=== PATIENT | female | born 1990 | race Two or more races ===

== ENCOUNTER 2024-02-15 14:07 | Emergency (ER) | payer OTHER, SELFPAY ==
--- NOTE | ~2024-02-15 | XR_ITS ---
EXAMINATION: PORTABLE CHEST 1 VIEW CLINICAL INFORMATION: chest pain. COMPARISON: No recent pertinent prior studies are available for comparison. TECHNIQUE: Portable frontal view of the chest was obtained. FINDINGS: The lungs are well expanded. No focal infiltrate, effusion, edema, or pneumothorax. Cardiac and mediastinal silhouettes are within normal limits for technique. No acute bony abnormality seen. XR/XR chest 1V IMPRESSION: No evidence of acute disease.
--- NOTE | 2024-02-15 14:11 | ECG_ITS ---
Test Reason : CHEST PAIN Blood Pressure : / mmHG Vent. Rate : 082 BPM Atrial Rate : 082 BPM P-R Int : 158 ms QRS Dur : 114 ms QT Int : 378 ms P-R-T Axes : 053 064 025 degrees QTc Int : 441 ms Normal sinus rhythm Right bundle branch block Abnormal ECG No previous ECGs available Referred By: Generic ED Physician Electronically Signed By:Maurilio Montero
[2024-02-15 14:35] VITALS: BP 104/63; PULSE 71; RESP 18; TEMP 36.7; O2SAT 99; BMI 25.2
--- NOTE | 2024-02-15 14:40 | ED_ITS ---
HPI - Chest Pain General Chief Complaint: Chest Pain Stated Complaint: abnormal ekg sent from urgent care Time Seen by Provider: 02/15/24 16:18 Source: patient and family (Mother) Mode of arrival: ambulatory Limitations: no limitations History of Present Illness HPI narrative: 33-year-old female came in for evaluation of chest pain for 4 days, pain has been constant for the past 4 days constantly but waxes and wanes, no difficulty breathing, no lower extremity swelling tenderness, no recent travel no prolonged immobilization. Pain is localized to the mid chest with no radiation, no shortness a breath association, no coughing, no fever, no chills. Patient found to be in RBBB on the EKG done at urgent care in the patient was sent for further evaluation. Related Data Allergies Allergy/AdvReac Type Severity Reaction Status Date / Time No Known Allergies Allergy Verified 02/15/24 14:40 Review of Systems 2 Review of Systems: All other systems are reviewed and are negative Constitutional: Reports as per HPI and Reports no additional constitutional complaints Eyes: Reports as per HPI and Reports no additional eye complaints Reports system reviewed and no additional complaints, except as documented Cardiovascular: Reports as per HPI and Reports no additional cardiovascular complaints Respiratory: Reports as per HPI and Reports no additional respiratory complaints Gastrointestinal: Reports as per HPI and Reports no additional gastrointestinal complaints Genitourinary: Reports no additional female genitourinary complaints Musculoskeletal: Reports no additional musculoskeletal complaints Skin/Breast: Reports system reviewed and no additional complaints, except as docu Psychiatric: Reports no additional psychiatric complaints Endocrine: Reports no additional endocrine complaints Hematologic/Lymphatic: Reports no additional hematologic/lymphatic complaints Allergic/Immunologic: Reports no additional allergic/immunologic complaints Reports system reviewed and no additional complaints, except as documented and Reports Abnormal speech present [facility] Social History Social History Advance Directives: No Advance Directives Information Provided: No Do you have a plan to hurt others: No Plan Physical Exam 2 Vital Signs: Vital Signs: Last Vital Signs Temp 97.1 F 02/15/24 18:39 Pulse 64 02/15/24 18:39 Resp 18 02/15/24 18:39 BP 106/74 02/15/24 18:39 Pulse Ox 99 02/15/24 18:39 O2 Del Method Room Air 02/15/24 18:39 BMI result Body Mass Index 25.2 Vital signs have been reviewed and appear to be correct. Blood pressure elevated. Heart rate normal. Respiratory rate normal. Temperature normal. Oxygen saturation normal. Appearance: Alert. Oriented X3. No acute distress. Head: Normal external exam. Normocephalic. Atraumatic. No Dewitt signs noted. No raccoon eyes noted Eyes: PERRLA. EOMI. Conjunctiva and sclera normal. Eyelids normal. ENT: TM's Normal. Pharynx normal. Uvula midline. Moist mucous membranes. No trismus noted. No drooling noted. No muffled voice noted. Neck: Normal inspection. Neck supple. FROM. No adenopathy. Thyroid Normal. No meningeal signs. No neck mass noted. CVS: Normal heart rate and rhythm. Heart sound normal. No murmurs noted. Pulses normal throughout. Respiratory: No respiratory distress. Painless inspiration. Breath sounds normal. No wheezes/rales/rhonchi noted. Chest nontender. No accessory muscle usage noted or decreased air movement noted. Abdomen: Soft and nontender. Bowel sounds normal in all 4 quadrants. No distention noted. No organomegaly noted. No visible injury noted. Back: No CVA tenderness. Full range of motion noted. Skin: Skin warm and dry. Normal skin color. Normal skin turgor. No rashes/lesions/lacerations noted. Extremities: No lower extremity edema. Extremities exhibit normal range of motion. Extremities nontender. Neuro: Oriented X 3. Cranial nerve exam: II-XII are grossly intact No motor deficit. No sensory deficit. Reflexes normal. Course Course Course Narrative: This is a rapid medical exam completed by Victorina SALMERONN: Additional HPI, ROS, PE not included below will be deferred to primary provider. Chest pain since 02/11/24. Went to urgent care earlier today with concerns for an abnormal EKG Reevaluation(s) Reevaluation #1: Noncardiac chest pain. EKG is showing RBBB no old EKG to compare, unremarkable troponin and D-dimer to suggest ACS or pulmonary embolism. As discussed with the patient to follow-up with Dr. Juliocesar russell as an outpatient for the abnormal EKG. Time: 19:00 Medical Decision Making Differential Diagnosis Differential Diagnoses: The differential diagnosis associated with the presentation includes (ACS, pulmonary embolism, pneumonia, pneumothorax, pleural effusion, rib fracture, myofascial chest pain, electrolyte derangement, anemia.) Admission/Observation Consideration of admission/observation: Escalation of care including admission/observation considered Lab Data MDM Lab Attestation statement: I reviewed the patient's lab results. 02/15/24 15:44 02/15/24 15:44 Labs: Lab Results 02/15/24 02/15/24 Range/Units 15:44 16:43 WBC 4.3 L (4.8-10.8) X10*3/uL RBC 4.75 (4.20-5.50) X10*6/uL Hgb 14.1 (12.0-16.0) g/dl Hct 40.9 (37.0-47.0) % MCV 86.1 (80.0-98.0) fL MCH 29.7 (27.0-33.0) pg MCHC 34.5 (31.0-35.0) g/dl RDW 12.4 (11.0-16.0) % Plt Count 252 (160-400) X10*3/uL MPV 8.6 L (9.4-12.3) fL Immature Gran % (Auto) 0.0 (0.0-0.4) % Neut % (Auto) 25.6 L (45-73) % Lymph % (Auto) 66.3 H (20-40) % [place] % (Auto) 6.3 (2-11) % Eos % (Auto) 1.6 (0-4) % Baso % (Auto) 0.2 (0-2) % Lymph # (Auto) 2.9 (1.2-4.9) X10*3/uL [place] # (Auto) 0.3 (0.1-1.2) X10*3/uL Eos # (Auto) 0.1 (0.0-0.4) X10*3/uL Baso # (Auto) 0.0 (0.0-0.2) X10*3/uL Abs Immat Gran (auto) 0.00 (0.00-0.03) X10*3/uL Absolute Neuts (auto) 1.1 L (2.0-8.3) x10*3/uL Absolute Nucleated RBC 0.000 (0.0-0.012) X10*3/uL Nucleated RBC % (auto) 0.0 (0.0-0.2) /100WBC Smear Tech's Comments VERIFIED D-Dimer High Sensitivty < 150 NG/ML Sodium 137 (135-145) mmol/L Potassium 4.0 (3.3-5.1) mmol/L Chloride 104 (96-108) mmol/L Carbon Dioxide 25 (22-29) mmol/L Anion Gap 12 (12-20) BUN 9 (9-16) mg/dL Creatinine 0.69 (0.5-1.4) mg/dL Estim Creat Clear Calc 106.7 Estimated GFR > 60 Random Glucose 87 (60-115) mg/dL Calcium 9.5 (8.4-10.2) mg/dL Magnesium 2.2 (1.6-2.6) mg/dL Total Bilirubin 0.5 (0.0-1.0) mg/dL AST 18 (5-31) U/L ALT 12 (0-31) U/L Alkaline Phosphatase 42 (39-117) U/L Troponin I High Sens < 2.7 < 2.7 (<3.5-17.0) ng/L Total Protein 7.4 (6.5-8.0) g/dL Albumin 4.3 (3.5-5.0) g/dL Independent Interpretation I performed an independent interpretation of an: EKG (Normal sinus rhythm at 82 beats per minutes, RBBB, otherwise unremarkable intervals.) and Plain X-Ray (Chest: No evidence of acute disease.) Radiology Impression Discussion of test interpretation with radiology: I have reviewed the radiologist's reading. Discharge Plan Discharge Clinical Impression: Chest pain, Right bundle branch block (RBBB) Patient Disposition: Home, Self-Care Instructions: Chest Pain (ED) Referrals: Alexandria Higuera MD [Primary Care Provider] - Maurilio Montero MD [Physician] - Print Language: Upper Sorbian
[2024-02-15 15:52] LABS: Basophils Percent Auto 0.2 % (0-2); Eosinophils Absolute Auto 0.1 X10*3/uL (0.0-0.4); Eosinophils Percent Auto 1.6 % (0-4); Hematocrit 40.9 % (37.0-47.0); Hemoglobin 14.1 g/dl (12.0-16.0); Lymphocytes Absolute Auto 2.9 X10*3/uL (1.2-4.9); Lymphocytes Percent Auto 66.3 % (20-40); MANUAL DIFF FLAG SCAN; Mean Corpuscular HGB Conc 34.5 g/dl (31.0-35.0); Mean Corpuscular Hemoglobin 29.7 pg (27.0-33.0); Mean Corpuscular Volume 86.1 fL (80.0-98.0); Mean Platelet Volume 8.6 fL (9.4-12.3); Monocytes Absolute Auto 0.3 X10*3/uL (0.1-1.2); Monocytes Percent Auto 6.3 % (2-11); Neutrophils Absolute Auto 1.1 x10*3/uL (2.0-8.3); Neutrophils Percent Auto 25.6 % (45-73); Platelet Count 252 X10*3/uL (160-400); Red Blood Count 4.75 X10*6/uL (4.20-5.50); Red Cell Distribution Width 12.4 % (11.0-16.0); SCAN SMEAR FLAG 1; White Blood Count 4.3 X10*3/uL (4.8-10.8)
[2024-02-15 16:20] LABS: Alanine Aminotransferase 12 U/L (0-31); Albumin Level 4.3 g/dL (3.5-5.0); Alkaline Phosphatase 42 U/L (39-117); Anion Gap 12 (12-20); Aspartate Amino Transferase 18 U/L (5-31); Bilirubin Total 0.5 mg/dL (0.0-1.0); Blood Urea Nitrogen 9 mg/dL (9-16); Calcium 9.5 mg/dL (8.4-10.2); Carbon Dioxide 25 mmol/L (22-29); Chloride 104 mmol/L (96-108); Creatinine Clr Calc Pharmacy 106.7; Estimated Glomerular Filt Rate > 60; Glucose Random 87 mg/dL (60-115); Magnesium 2.2 mg/dL (1.6-2.6); Sodium 137 mmol/L (135-145); Total Protein 7.4 g/dL (6.5-8.0)
[2024-02-15 16:25] LABS: SLIDE REVIEW VERIFIED
[2024-02-15 16:28] LABS: Troponin-I High Sensitivity < 2.7 ng/L (<3.5-17.0)
[2024-02-15 18:02] LABS: D Dimer High Sensitivity < 150 NG/ML
[2024-02-15 18:12] LABS: Troponin-I High Sensitivity < 2.7 ng/L (<3.5-17.0)
[2024-02-15 18:39] VITALS: BP 106/74; PULSE 64; RESP 18; TEMP 36.2; O2SAT 99
[2024-02-15 19:12] VITALS: BP 106/74; PULSE 64; RESP 18; TEMP 36.2; O2SAT 99
== END 2024-02-15 19:13 | disposition home or self-care (01) ==
PROVIDERS: Nurse Practitioner Family; Emergency Provider Emergency Medicine; PCP Internal Medicine
DX: R07.9 Chest pain, unspecified (principal); I45.10 Unspecified right bundle-branch block
CPT/HCPCS: 36415; 71045; 80053; 83735; 84484; 85025; 85379; 93005; 99283; 99284

== ENCOUNTER → 2024-02-15 14:11 | Outpatient (BNV) | payer OTHER, SELFPAY | PROVIDERS: Emergency Provider Emergency Medicine; PCP Internal Medicine; Visit Provider Internal Medicine Cardiovascular Disease | DX: R07.9 Chest pain, unspecified (principal) | CPT/HCPCS: 93010 ==

== ENCOUNTER 2024-03-10 08:11 | Outpatient (AMB) | payer OTHER, SELFPAY ==
[2024-03-10 08:16] VITALS: BP 100/62; PULSE 90; BMI 25.7
--- NOTE | 2024-03-10 08:16 | MHC.OFFVIS ---
Vital Signs 03/10/24 08:16 Height 5 ft 3 in Weight 145 lb 1.027 oz BMI 25.7 BP 100/62 Blood Pressure Location Rt brachial Position Sitting Pulse 90 Pulse Source Pulse Oximeter Intake Visit Reasons: abnormal ekg /RBBB Adjunct Faculty Required: No Allergies No Known Allergies Allergy (Verified 03/10/24 08:18) Medication List - Last Reconciled 03/10/24 by Beth Giles, JUAN PABLO-C loratadine 10 mg PO DAILY PNV,calcium 34-eyel-rpjac acid 27 mg iron- 1 mg (M-Peterson Plus) 1 tab PO DAILY HPI HPI abnormal ekg /RBBB: Details: Jordana is a 33-year-old female with past medical history of asthma, social smoking who recently presented to [facility] with report of left-sided chest discomfort. Her symptom had been ongoing for the last 4 days. She ruled out for ACS. Her EKG did show right bundle branch block. She was referred to Cardiology in follow-up. Today she presents for cardiology consultation. She states she has a history of heart murmur, no other cardiac history. She continues to have a mild discomfort in her left upper chest which has been persistent for the last 2 weeks. Initially she was getting sharp pains in that region however that has improved. She does work out routinely doing light lifting and cardio. Does not recall having any specific injury. She has occasional shortness of breath which she relates to her asthma. She will feel fluttering in her chest at times lasting seconds. No dizziness, presyncope, syncope, falls. No PND, orthopnea or edema. 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 She smokes cigarettes socially when she is with her family. No alcohol use. No known family history of heart disease. COUNT INCLUDES THE [facility] Medical History (Updated 03/10/24 @ 08:55 by Beth Giles, JUAN PABLO-C) Asthma Surgical History (Updated 03/10/24 @ 08:52 by Beth Giles NP-C) History of appendectomy Social History (Updated 03/10/24 @ 08:51 by Beth Giles NP-C) Alcohol intake: never Patient Tobacco Use Status: Current someday Tobacco user Review of Systems Const All systems reviewed & are unremarkable except as noted in HPI and below ENT Denies dizziness Card Reports chest pain, Reports chest pain at rest, Denies chest pain with activity, Denies rapid heart rate, Denies pedal edema, Denies edema, Denies leg edema, Denies lightheadedness, Denies palpitations, Denies dyspnea, Denies dyspnea on exertion and Denies orthopnea Resp Denies cough, Denies dyspnea and Denies dyspnea on exertion GI Denies hematochezia and Denies change in stool character Musc Denies abnormal gait, Denies limited range of motion, Denies muscle cramps, Denies muscle weakness, Denies numbness, Denies radiating pain into limb, Denies stiffness and Denies tingling Neuro Denies abnormal gait, Denies dizziness, Denies numbness and Denies tingling Endo Denies palpitations Physical Exam Vital Signs: Last Vital Signs Pulse 90 03/10/24 08:16 BP 100/62 03/10/24 08:16 BMI result Body Mass Index 25.7 Const General: cooperative, healthy appearing, comfortable and no acute distress Orientation/consciousness: patient oriented x3 Neck Neck: Yes normal visual inspection and Yes no JVD Resp Effort & Inspection: normal respiratory effort Auscultation: clear to auscultation bilaterally, no crackles, no rales, no rhonchi and no wheezes Cardio Jugular venous distension: no JVD Rate: regular rate Rhythm: regular rhythm Heart sounds: S1 normal heart sound present, S2 normal heart sound present, no murmurs and no rubs Neuro General: patient oriented x3 Extrem General: Yes normal to inspection, No no pedal edema and No calf tenderness Psych Appearance: grossly normal Mental Status: mental status grossly normal Speech and movement: Normal speech and movement present Assessment & Plan Assessment & Plan (1) Chest pain: Code(s): R07.9 - Chest pain, unspecified Category: Medical Plan: Forward of atypical sounding chest discomfort. She has had persistent mild symptoms for the last 2 weeks. Cardiac risk factor of social smoking. EKG recently done shows sinus rhythm with right bundle branch block. She is reporting intermittent palpitations which feel like a flutter in her chest. At this time will perform cardiac workup with stress echocardiogram to assess for ischemia, echocardiogram to assess for structural heart disease. She does report history of murmur however I do not hear any on exam today. Will order Holter monitor to assess for any arrhythmia, AFib as she does report fluttering in her chest. Emergency care if needed for symptoms. Offered reassurance that her chest discomfort sounds more like chest wall symptoms. Cardiology follow-up in 4-6 weeks, sooner if needed. (2) Right bundle branch block (RBBB): Code(s): I45.10 - Unspecified right bundle-branch block Category: Medical Plan: Finding on EKG, unknown chronicity. (3) Palpitation: Code(s): R00.2 - Palpitations Category: Medical Plan: As above Plan Time spent on chart review, documentation, interview and assessment Orders: Orders CA echo stress exercise Today I45.10 - Unspecified right bundle-branch block, R00.2 - Palpitations, R07.89 - Other chest pain CA echo transthoracic complete Today I45.10 - Unspecified right bundle-branch block, R00.2 - Palpitations, R07.9 - Chest pain, unspecified ECG 3 day holter monitor Today I45.10 - Unspecified right bundle-branch block, R00.2 - Palpitations Coding Level of Care Code New Pt Level 3 (20556) Diagnoses Chest pain R07.9 Right bundle branch block (RBBB) I45.10 Palpitation R00.2 Time Spent (min) 26
== END 2024-03-10 08:41 | disposition home or self-care (01) ==
PROVIDERS: PCP Internal Medicine; Visit Provider Nurse Practitioner Family
DX: R07.9 Chest pain, unspecified (principal); I45.10 Unspecified right bundle-branch block; R00.2 Palpitations
CPT/HCPCS: 99203

== ENCOUNTER → 2024-03-10 08:11 | Outpatient (BNVA) | payer OTHER, SELFPAY | PROVIDERS: PCP Internal Medicine; Visit Provider Nurse Practitioner Family | DX: R07.9 Chest pain, unspecified (principal); I45.10 Unspecified right bundle-branch block; R00.2 Palpitations | CPT/HCPCS: 99202 ==

== ENCOUNTER → 2024-03-26 13:55 | Outpatient (REF) | payer OTHER, SELFPAY ==
--- NOTE | 2024-03-26 14:02 | HM_ITS ---
* Total monitoring time 3 days. * Underlying rhythm is sinus with an average rate of 83/Min. About 25% of the time, rate > 100/Min. * Rare supraventricular ectopy. * One isolated ventricular ectopic beat. * No significant pauses or AV blocks. * Patient marker used once in association with sinus rhythm. * No diary events. MTDD
--- NOTE | 2024-03-26 14:02 | CA_ITS ---
Transthoracic Echocardiogram Patient (Last, First, Middle): Jordana Barron, Gender: Female Date of : 1990 Age: 33 Procedure Date: 03/26/2024 Procedure Type: Transthoracic Echocardiogram Location: OP Height: 160. cm Weight: 63.5 kg BSA: 1.66 m2 Heart Rate: 62 bpm BP: 110 / 60 mmHg Shoe Stock Associate: LEIGHTON Michaud MD: Beth Giles CARRIAGE DOGGER-Carlos Philosophy Faculty Member: Simeon Ardon MD Symptoms: I45.10 - Unspecified right bundle-branch block Study Quality: Fair ECG Rhythm: Sinus Conclusions: - Normal study Findings Left Ventricle Normal left ventricular size, thickness, and systolic function. The visually estimated ejection fraction is between 60-65%. Spectral Doppler is indicative of a normal filling pattern. Right Ventricle Normal right ventricular cavity size and systolic function. Atria Both atria are normal in size. There is no evidence of interatrial shunt. Aortic Valve Normal aortic valve structure and function. There is no aortic valve stenosis. There is no aortic valve regurgitation. Mitral Valve Normal mitral valve structure and function. There is no mitral valve regurgitation. There is no mitral valve stenosis. Pulmonic Valve The pulmonic valve is likely normal. Tricuspid Valve Normal tricuspid valve structure. There is trace tricuspid valve regurgitation. The right ventricular systolic pressure is normal. The right ventricular systolic pressure is 14 mmHg. Normal right atrial pressure. There is no evidence of pulmonary hypertension. Great Vessels There is no dilatation of the ascending aorta measuring 2.70 cm. Venous The inferior vena cava is normal in size and collapses greater than 50% with inspiration. Pericardium/Pleural There is no evidence of pericardial effusion. Prior Study Comparison No prior study available for comparison. Measurements 2D Linear Measurements IVSd: 0.80 0.6-0.9/0.6-1.0 cm LVIDd: 4.71 3.9-5.3/4.2-5.9 cm LVIDd Index: 2.84 2.4-3.2/2.2-3.1 cm/m2 LVIDs: 3.53 2.0-3.6 cm LVPWd: 0.82 0.7-1.1 cm LA Diam: 2.60 2.7-3.8/3.0-4.0 cm LAIDs Index: 1.57 1.5-2.3 cm/m2 LV Mass: 153.99 67-162/88-224 g LV Mass Index: 92.77 43-95/49-115 g/m2 LVOT Diam: 1.90 3.0+(-)1.3 cm 2D Systolic Function EF 4C: 62.60 >55% EF 2C: 63.50 >55% EF BiP: 63.20 >55% Mitral Valve MV Pk E: 0.66 MV PK A: 0.52 MV Decel Time: 177.00 E/A: 1.30 E'Lateral: 15.50 E'Medial: 11.10 E/E' Med: 6.00 E/E' Lat: 4.30 PHT: 52.00 MVA PHT: 4.23 Decel [place]: 3.75 Aortic Valve AoV Pk Tray: 1.00 AoV Mn Tray: 0.71 AoV VTI: 0.21 AoV Pk Grad: 4.00 Aov Mn Grad: 2.00 PATRICIA Cont.VTI: 2.67 LVOT LVOT Pk Tray: 0.94 LVOT Mn Tray: 0.65 LVOT VTI: 0.19 LVOT Pk Grad: 4.00 LVOT Mn Grad: 2.00 LVOT Diam: 1.90 LVOT Area: 2.84 Diastolic Function MV Pk E: 0.66 MV Pk A: 0.52 E/A: 1.30 E'Medial: 11.10 E/E' Med: 6.00 E' Laterial: 15.50 E/E' Lat: 4.30 Right Ventricle TAPSE (mm): 17.70 TVS' Tray: 10.80 Tricuspid Valve TR Pk Tray: 1.64 TR Pk Grad: 11.00 RA Press: 3.00 RVSP: 14.00 Great Vessels Aorta Sinus of Valsalva: 2.50 2.0-3.5 cm Ao Asc: 2.70 2.1-3.4 cm Pulmonary Valve PV Pk Tray: 0.80 Peak PV Grad: 3.00 Updated in Other Vendor System with Status of Final Simeon Ardon MD electronically signed on 03/26/2024 3:03:14 PM with status of Final
== END ==
LOC: HO.CARD 13:55
PROVIDERS: Visit Provider Nurse Practitioner Family
DX: R00.2 Palpitations (principal); R07.9 Chest pain, unspecified; I45.10 Unspecified right bundle-branch block
CPT/HCPCS: 93242; 93306

== ENCOUNTER → 2024-03-26 14:02 | Outpatient (BNV) | payer OTHER, SELFPAY | PROVIDERS: Visit Provider Internal Medicine Cardiovascular Disease | DX: I47.10 Supraventricular tachycardia, unspecified (principal) | CPT/HCPCS: 93244; 93306 ==

== ENCOUNTER → 2024-05-29 10:47 | Outpatient (REF) | payer OTHER, SELFPAY ==
--- NOTE | 2024-05-29 10:49 | CA_ITS ---
Acquisition Time: 2024-05-29 10:45:58 Total Exercise Time: 00:11:24 Test Indications: Chest Pain Medications: LORATADINE Protocol: RAQUEL Max HR: 190 BPM 101% of Pred: 188 BPM Max BP: 160/060 mmHG Max Work Load: 13.4 METS Exercise stress test exercise 11 min 24 sec of Raquel protocol achieving 96% MPHR, with mild SOB, no chest discomfort, with isolated PVCs and PACs, with normotensive response to exercise, without EKG changes. Echo images obtained by [employer] at rest and immediately post peak exercise. Definity contrast used. Test reviewed with Dr. Montero. Patient reported fluttering/palpitations during test. Rhythm was Sinus heart rate greater than 100 bpm. Would come in waves. No noted arrhythmias seen when she reported symptoms. Referred By: Beth Giles Overread By: Abril Pérez
== END ==
LOC: HO.CARD 10:47
PROVIDERS: Visit Provider Nurse Practitioner Family
DX: R07.89 Other chest pain (principal); I45.10 Unspecified right bundle-branch block; R00.2 Palpitations
CPT/HCPCS: 93350; Q9957

== ENCOUNTER → 2024-05-29 10:49 | Outpatient (BNV) | payer OTHER, SELFPAY | PROVIDERS: Visit Provider Nurse Practitioner | DX: R06.02 Shortness of breath (principal) | CPT/HCPCS: 93016; 93018; 93350; 93352 ==

== ENCOUNTER 2024-06-04 14:47 | Outpatient (AMB) | payer OTHER, SELFPAY ==
[2024-06-04 14:58] VITALS: BP 100/62; PULSE 94; BMI 25.8
--- NOTE | 2024-06-04 14:58 | A.OFFVIS_ITS ---
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 Her symptom had been ongoing for the last 4 days. She ruled out for ACS. Her EKG did show right bundle branch block. She was referred to Cardiology in follow-up. On last visit a Holter monitor, echocardiogram and stress echocardiogram were ordered and she now presents for follow-up. Today she that she still gets her left upper chest discomfort at times. Overall it has improved since last visit. She continues to work out in the gym doing light lifting and cardio. She has occasional shortness of breath which she relates to her asthma. She has not had any concerning heart palpitations. Her prior fluttering feeling she now feels is anxiety. No dizziness, presyncope, syncope, falls. No PND, orthopnea or edema. 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 She smokes cigarettes socially when she is with her family. [facility] Medical History Asthma Surgical History History of appendectomy Social History Alcohol intake: never Patient Tobacco Use Status: Current someday Tobacco user Review of Systems Const All systems reviewed & are unremarkable except as noted in HPI and below ENT Denies dizziness Card Denies chest pain, Denies chest pain at rest, Denies chest pain with activity, Denies rapid heart rate, Denies pedal edema, Denies edema, Denies leg edema, Denies lightheadedness, Denies palpitations, Reports dyspnea, Denies dyspnea on exertion and Denies orthopnea Resp Denies cough, Reports dyspnea and Denies dyspnea on exertion GI Denies hematochezia and Denies change in stool character Musc Denies abnormal gait, Denies limited range of motion, Denies muscle cramps, Denies muscle weakness, Denies numbness, Denies radiating pain into limb, Denies stiffness and Denies tingling Neuro Denies abnormal gait, Denies dizziness, Denies numbness and Denies tingling Endo Denies palpitations Physical Exam Vital Signs: Last Vital Signs Pulse 94 06/04/24 14:58 BP 100/62 06/04/24 14:58 BMI result Body Mass Index 25.8 Const General: cooperative, healthy appearing, comfortable and no acute distress Resp Effort & Inspection: normal respiratory effort Auscultation: clear to auscultation bilaterally, no crackles, no rales, no rhonchi and no wheezes Cardio Jugular venous distension: no JVD Rate: regular rate Rhythm: regular rhythm Heart sounds: S1 normal heart sound present, S2 normal heart sound present, no murmurs and no rubs Psych Appearance: grossly normal Mental Status: mental status grossly normal Speech and movement: Normal speech and movement present Assessment & Plan Assessment & Plan (1) Chest pain: Code(s): R07.9 - Chest pain, unspecified Category: Medical Plan: Forward of atypical sounding chest discomfort. On last visit she reported having symptoms for the last 2 weeks. Today she reports her discomfort has improved. Cardiac risk factor of social smoking. EKG recently done shows sinus rhythm with right bundle branch block. An echocardiogram was done on 03/26/2024 showing normal study. A stress echocardiogram was done in 05/29/2024 with exercise 11.5 minutes with no EKG or echo evidence of ischemia. A Holter monitor was done to evaluate her report of chest fluttering, done on 03/26/2024 for 3 days showing sinus rhythm with average heart rate 83, 25% of the time heart rate greater than 100, rare SVE and 1 PVC. All test results reviewed with her in detail. Offered reassurance that heart is functioning normally. She does have the right bundle branch block on EKG which does not require any specific treatment. Gave her a copy of her EKG. Going forward would recommend periodic EKG to ensure there is no other electrical change. Continue risk factor modification with ongoing exercise as tolerated, heart healthy diet, smoking cessation. Signs and symptoms of true angina reviewed with her. Cardiology follow-up in this office as needed. (2) Right bundle branch block (RBBB): Code(s): I45.10 - Unspecified right bundle-branch block Category: Medical Plan: Finding on EKG, unknown chronicity. (3) Palpitation: Code(s): R00.2 - Palpitations Category: Medical Plan: As above Plan Time spent on chart review, documentation, interview and assessment Coding Level of Care Code Est Pt Level 3 (08743) Diagnoses Chest pain R07.9 Right bundle branch block (RBBB) I45.10 Palpitation R00.2 Time Spent (min) 24
== END 2024-06-04 15:17 | disposition home or self-care (01) ==
PROVIDERS: Visit Provider Nurse Practitioner Family
DX: R07.9 Chest pain, unspecified (principal); I45.10 Unspecified right bundle-branch block; R00.2 Palpitations
CPT/HCPCS: 99213

== ENCOUNTER → 2024-06-04 14:47 | Outpatient (BNVA) | payer OTHER, SELFPAY | PROVIDERS: Visit Provider Nurse Practitioner Family | DX: R07.9 Chest pain, unspecified (principal); I45.10 Unspecified right bundle-branch block; R00.2 Palpitations | CPT/HCPCS: 99212 ==

== ENCOUNTER 2025-02-08 23:17 | Emergency (ER) | payer OTHER, SELFPAY ==
--- NOTE | ~2025-02-08 | XR_ITS ---
CLINICAL HISTORY: +blood TB 1 view chest x-ray Comparison: CR/SR - XR CHEST 1V - 02/15/24 16:11 EDT Findings: The lungs are clear. Heart size is normal. No acute fracture. IMPRESSION: 1. No acute findings. This document has been electronically signed by: Kevin Balbuena MD on 02/09/2025 01:00:53
[2025-02-08 23:55] VITALS: BP 120/71; PULSE 79; RESP 16; TEMP 36.6; O2SAT 98; BMI 24.9
--- NOTE | 2025-02-09 | ECG_ITS ---
Test Reason : HEART PALP Blood Pressure : */* mmHG Vent. Rate : 69 BPM Atrial Rate : 69 BPM P-R Int : 160 ms QRS Dur : 114 ms QT Int : 394 ms P-R-T Axes : 46 44 26 degrees QTcB Int : 422 ms Normal sinus rhythm Incomplete right bundle branch block Borderline ECG When compared with ECG of 15-Feb-2024 14:10, No significant change was found Referred By: Generic ED Physician Electronically Signed By: KAMILAH JACKSON
--- NOTE | 2025-02-09 00:30 | MHC.EDTECH ---
called pt for EKG, pt not in waiting room
[2025-02-09 01:43] LABS: Hematocrit 36.7 % (37.0-47.0); Hemoglobin 12.4 g/dl (12.0-16.0); Mean Corpuscular HGB Conc 33.8 g/dl (31.0-35.0); Mean Corpuscular Hemoglobin 29.8 pg (27.0-33.0); Mean Corpuscular Volume 88.2 fL (80.0-98.0); Platelet Count 248 X10*3/uL (160-400); Red Blood Count 4.16 X10*6/uL (4.20-5.50); White Blood Count 6.3 X10*3/uL (4.8-10.8)
[2025-02-09 02:10] LABS: Alanine Aminotransferase 12 U/L (0-31); Anion Gap 13 (12-20); Aspartate Amino Transferase 20 U/L (5-31); Bilirubin Total 0.3 mg/dL (0.0-1.0); Blood Urea Nitrogen 12 mg/dL (9-16); Calcium 8.8 mg/dL (8.4-10.2); Carbon Dioxide 23 mmol/L (22-29); Chloride 107 mmol/L (96-108); Creatinine Clr Calc Pharmacy 106.8; Estimated Glomerular Filt Rate > 60; Glucose Random 98 mg/dL (60-115); Potassium 3.7 mmol/L (3.3-5.1); Sodium 139 mmol/L (135-145); Total Protein 6.7 g/dL (6.5-8.0)
[2025-02-09 02:45] LABS: Alkaline Phosphatase 35 U/L (39-117)
--- NOTE | 2025-02-09 03:07 | ED_ITS ---
HPI - General Adult General Chief complaint: General Medical Stated complaint: flu like? Time Seen by Provider: 02/09/25 03:05 Source: patient Mode of arrival: ambulatory Limitations: no limitations History of Present Illness ED Provider: Dr. 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 She describes the sensation in his skipped heartbeats with a thumping sensation. She states that she had several episodes that lasted less than a minute. She states she did get sweatiness of her palms and felt short of breath. She denied lightheadedness or dizziness. She states that the palpitations did make her anxious. She had similar presentation 2-3 months prior and was told that she had an incomplete right bundle-branch block. 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 She also states she has been drinking more caffeine than usual. The patient states she had a negative tuberculosis blood test 1 year prior and had a recent tuberculosis blood test which was positive. She has been referred to a credit compliance officer to discuss treatment. Patient informed her nursing program that she tested positive for tuberculosis and she needs to be medically evaluated to make sure that she does not have active tuberculosis. Patient denied cough, fever, chills, weight loss, chest pain or shortness of breath. Related Data Home Medications ?Medication ?Instructions ?Recorded ?Confirmed loratadine 10 mg tablet 10 mg PO DAILY 03/10/24 06/04/24 vitamin with calcium 1 tab PO DAILY 03/10/24 06/04/24 no.72-iron 27 mg-folic acid 1 mg tablet (M- Plus) ibuprofen 600 mg tablet 600 mg PO Q6H PRN 06/04/24 06/04/24 Allergies Allergy/AdvReac Type Severity Reaction Status Date / Time No Known Allergies Allergy Verified 02/09/25 00:26 Review of Systems 2 Review of Systems: Yes all other systems are reviewed and are negative PMFSH Past Medical History Medical History Asthma Surgical History History of appendectomy Social History Social History Alcohol intake: current Alcohol intake frequency: holidays/special occasions only Patient Tobacco Use Status: Current someday Tobacco user Smoked in Last 30 Days: No Use of substances other than those prescribed or required for medical reasons: No Advance Directives: No Advance Directives Information Provided: Yes Patient : No Physical Exam ED Vital Signs: Vital Signs - 24 hr 02/08/25 23:55 02/09/25 03:45 Temperature 97.9 F 97.9 F Pulse Rate 79 79 Respiratory Rate 16 16 Blood Pressure 120/71 120/71 Pulse Oximetry 98 98 Oxygen Delivery Method Room Air Room Air BMI result Body Mass Index 24.9 Exam: General: Awake, alert in no distress Head: Normocephalic, atraumatic EENT: PERRL, Lids normal, sclera normal, conjunctiva normal, nose normal , ears normal, throat without erythema or exudates Neck: Supple, no adenopathy Lung: breath sounds symmetric, no wheezing, rales or rhonchi Chest: symmetric movement, nontender Heart: regular rate and rhythm, normal S1, S2 no murmurs or rubs Abdomen: soft, non-tender, nondistended, normal bowel sounds Back: no vertebral tenderness, no CVAT Extremities: no deformities, moves all extremities symmetrically Neuro: Awake, alert, oriented, normal speech, cranial nerves intact, moves all extremities symmetrically Psych: Pleasant, cooperative Medical Decision Making Medical Decision Making MDM Narrative: 34-year-old female who has no significant past medical history who presents emergency department for evaluation of brief, intermittent palpitations that started yesterday afternoon and for evaluation of active tuberculosis. She has had no symptoms but had a negative blood tuberculosis test 1 year prior and had a positive tuberculosis blood tests recently. Patient does have primary care doctor and she has been referred to a credit compliance officer for discussion of treatment to prevent active TB in the future. Patient's vital signs were normal. Physical examination was unremarkable. Differential diagnosis: ?Includes but is not limited to palpitations, arrhythmias, TBI exposure, active tuberculosis, anemia, electrolyte abnormalities Course: 03:33 The patient's chest x-ray revealed no evidence for active tuberculosis also clinically she has no symptoms to suggest active TB. Patient did have a negative serumTB test 1 year prior and now has a positive TB test suggesting that she has been exposed to tuberculosis within the last year. Patient does have a referral to a credit compliance officer to discuss treatment in order prevent active tuberculosis in the future. 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 The patient's palpitations are most likely secondary to PACs or PVCs and I did discuss this with the patient. She was given printed and verbal instructions and discharged home. Admission/Observation Consideration of admission/observation: Escalation of care including admission/observation considered (No) Lab Data MDM Lab Attestation statement: I reviewed the patient's lab results. 02/09/25 01:12 02/09/25 01:12 Labs: Lab Results 02/09/25 Range/Units 01:12 WBC 6.3 (4.8-10.8) X10*3/uL RBC 4.16 L (4.20-5.50) X10*6/uL Hgb 12.4 (12.0-16.0) g/dl Hct 36.7 L (37.0-47.0) % MCV 88.2 (80.0-98.0) fL MCH 29.8 (27.0-33.0) pg MCHC 33.8 (31.0-35.0) g/dl RDW 13.0 (11.0-16.0) % Plt Count 248 (160-400) X10*3/uL MPV 9.0 L (9.4-12.3) fL Absolute Nucleated RBC 0.000 (0.0-0.012) X10*3/uL Nucleated RBC % (auto) 0.0 (0.0-0.2) /100WBC Sodium 139 (135-145) mmol/L Potassium 3.7 (3.3-5.1) mmol/L Chloride 107 (96-108) mmol/L Carbon Dioxide 23 (22-29) mmol/L Anion Gap 13 (12-20) BUN 12 (9-16) mg/dL Creatinine 0.68 (0.5-1.4) mg/dL Estim Creat Clear Calc 106.8 Estimated GFR > 60 Random Glucose 98 (60-115) mg/dL Calcium 8.8 D (8.4-10.2) mg/dL Total Bilirubin 0.3 (0.0-1.0) mg/dL AST 20 (5-31) U/L ALT 12 (0-31) U/L Alkaline Phosphatase 35 L (39-117) U/L Total Protein 6.7 (6.5-8.0) g/dL Albumin 4.0 (3.5-5.0) g/dL Independent Interpretation I performed an independent interpretation of an: EKG and Plain X-Ray Interpretation: My independent interpretation patient's one-view chest x-ray is as follows: No acute disease. My independent interpretation patient's 12 EKG done on 02/09/2025 at 01:04 hours is as follows: Sinus rhythm with a rate of 69, normal [place] interval, prolonged QRS of 114 milliseconds, normal QTC of 422 milliseconds, incomplete right bundle-branch block, no ST segment elevation, no ST segment depression, no significant T-wave abnormalities, no PACs, no PVCs Radiology Impression Discussion of test interpretation with radiology: I have reviewed the radiologist's reading. Radiologist Impression: 1 view chest x-ray Comparison: CR/SR - XR CHEST 1V - 02/15/24 16:11 EDT Findings: The lungs are clear. Heart size is normal. No acute fracture. IMPRESSION: 1. No acute findings. This document has been electronically signed by: Kevin Balbuena MD on 02/09/2025 01:00:53 Discharge Plan Discharge Clinical Impression: Heart palpitations, Exposure to TB Patient Disposition: Home, Self-Care Instructions: Heart Palpitations (ED) Additional Instructions: Your complete blood count and comprehensive metabolic panel were normal. Your EKG revealed an incomplete bundle-branch block with no other significant abnormalities. Your palpitations are most likely caused by PACs or PVCs which are benign. You told me that you had a negative tuberculosis test 1 year prior and this year's tuberculosis test is positive. You do not have any symptoms of active tuberculosis in your chest x-ray was normal this suggests that you have been exposed to tuberculosis within the last year. You will need to follow-up with a credit compliance officer your infectious disease doctor to discuss treatment of tuberculosis exposure to prevent you from getting active tuberculosis in the future. You are medically cleared to take your test today and your medically cleared to participate in clinical work. Follow-up with your doctor in 2 days. Please return to the emergency department if your symptoms get worse or if you develop any symptoms that are concerning to you. Prescriptions: No Action M-Peterson Plus 27 mg iron- 1 mg tablet 1 tab PO DAILY loratadine 10 mg tablet 10 mg PO DAILY ibuprofen 600 mg tablet 600 mg PO Q6H PRN Stand Alone Forms: Work/School Release Interventions: ED Discharge Assessment Last Done: 02/09/25 03:45 Discharge Date/Time: 02/09/25 03:46 Print Language: [place]
[2025-02-09 03:45] VITALS: BP 120/71; PULSE 79; RESP 16; TEMP 36.6; O2SAT 98
== END 2025-02-09 03:46 | disposition home or self-care (01) ==
PROVIDERS: Emergency Provider Emergency Medicine Emergency Medical Services; PCP Internal Medicine
DX: R00.2 Palpitations (principal); R06.02 Shortness of breath; Z20.1 Contact with and (suspected) exposure to tuberculosis; F17.200 Nicotine dependence, unspecified, uncomplicated
CPT/HCPCS: 36415; 71045; 80053; 85027; 93005; 99283; 99284

== ENCOUNTER → 2025-02-09 00:35 | Outpatient (BNV) | payer OTHER, SELFPAY | PROVIDERS: PCP Internal Medicine; Visit Provider Radiology Diagnostic Radiology | DX: A15.9 Respiratory tuberculosis unspecified (principal) | CPT/HCPCS: 71045 ==

== ENCOUNTER → 2025-02-09 01:04 | Outpatient (BNV) | payer OTHER, SELFPAY | PROVIDERS: Emergency Provider Emergency Medicine Emergency Medical Services; PCP Internal Medicine; Visit Provider Internal Medicine | DX: I45.10 Unspecified right bundle-branch block (principal) | CPT/HCPCS: 93010 ==